=== PATIENT | female | born 1970 | race Caucasian/White ===

== ENCOUNTER → 2023-04-25 | Outpatient (CLI) | payer OTHER ==
[2023-04-25 12:13] LABS: Basophils # (A) 0.1 k/uL (0-0.2); Basophils % (A) 1 %; Eosinophils # (A) 0.2 k/uL (0-0.7); Eosinophils % (A) 3 %; HGB 14.8 gm/dL (11.4-16.0); Lymphocytes # (A) 2.2 k/uL (1.0-4.8); Lymphocytes % (A) 25 %; MCH 30.4 pg (25.0-35.0); MCHC 32.9 g/dL (31.0-37.0); MCV 92.5 fL (80.0-100.0); Mean Platelet Volume 7.6; Monocytes # (A) 0.4 k/uL (0-1.0); Monocytes % (A) 4 %; Neutrophils # (A) 5.8 k/uL (1.3-7.7); Neutrophils % (A) 67 %; Platelet Count 272 k/uL (150-450); RBC 4.86 m/uL (3.80-5.40); RDW 12.4 % (11.5-15.5); WBC 8.7 k/uL (3.8-10.6)
[2023-04-25 12:25] LABS: African American GFR (CKD) >90 (>60 ml/min/1.73 sqM); Anion Gap 8 mmol/L; Blood Urea Nitrogen 24 mg/dL (7-17); Calcium 9.7 mg/dL (8.4-10.2); Carbon Dioxide 24 mmol/L (22-30); Chloride 108 mmol/L (98-107); Glucose 95 mg/dL (74-99); Non-African American GFR(CKD) >90 (>60 ml/min/1.73 sqM); Potassium 4.1 mmol/L (3.5-5.1); Sodium 140 mmol/L (137-145)
== END | disposition home or self-care (01) ==
LOC: LABPAT 10:13
PROVIDERS: ATTEND Orthopaedic Surgery
DX: Z01.812 Encounter for preprocedural laboratory examination (principal); M75.02 Adhesive capsulitis of left shoulder; M75.42 Impingement syndrome of left shoulder
CPT/HCPCS: 80048; 85025; 93005

== ENCOUNTER 2023-05-08 05:38 | Day surgery (SDC) | payer OTHER ==
--- NOTE | 2023-05-07 08:25 | P.HPOR ---
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 Worsened over the past couple months. She's had difficult time with any overhead activity and at night. She's tried medications along with therapy with minimal relief. She denies any traumatic event. Review of Systems Negative except as in HPI Past Medical History Past Medical History: Thyroid Disorder Physical Examination - Shoulder left Tenderness with palpation: anterior Pain: with abduction, with forward flexion ROM: forward flexion: 60 degrees (90 passively) ROM: internal rotation: 0 ROM: external rotation: 40 degrees Crepitus with motion: Yes Strength: abduction: 5/5 Strength: external rotation: 5/5 Tests: internal impingement tests: positive, external impingment tests: positive Results The patient is a well-developed well-nourished female approximately 5 foot 5, 165 pounds of mesomorphic habitus. HEENT exam is nonfocal, neck is supple. She is diffusely tender about the left shoulder. She has significant limitation of passive range of motion. Impingement test, Neer test, and speed tests are positive. Her distal neurovascular appears intact in the left upper extremity. - Diagnostic results Shoulder MRI: image reviewed (Left shoulder MRI is reviewed and shows evidence of supraspinatus tendinosis along with a superior labral tear and diminished capsular volume. A partial tear of the proximal biceps is also noted.) Assessment and Plan Assessment: Left shoulder adhesive capsulitis/synovitis Left shoulder impingement/rotator cuff tendinitis/possible partial thickness rotator cuff and possible biceps tear Plan: I talked to the patient regarding her condition and treatment options. This point she remains quite symptomatic despite attempted conservative measures. After thorough discussion she has to proceed with surgery. We'll plan to proceed with left shoulder arthroscopic evaluation with probable subacromial decompression, manipulation under anesthesia, rotator cuff debridement, possible biceps tenotomy versus tenodesis.
[2023-05-07 09:03] VITALS: BMI 26.6
[2023-05-08] MEDS ORDERED: SCOPOLAMINE 1 MG/72 HR PATCH TRANSDERM ONE (06:05)
[2023-05-08] MEDS ORDERED: MIDAZOLAM 2 MG/2 ML VIAL IV PRN (06:05)
[2023-05-08] MEDS ORDERED: LACTATED RINGERS 1,000 ML IV SCH (06:05)
[2023-05-08] MEDS ORDERED: DEXAMETHASONE SOD PHOSPHATE 4 MG/ML 1 ML VIAL IV ONE (06:05)
[2023-05-08] MEDS ORDERED: ONDANSETRON 4 MG/2 ML VIAL IVP ONE (06:05)
[2023-05-08 06:23] VITALS: RESP 16
[2023-05-08 06:33] LABS: Glucose,Whole Blood 99 mg/dL (70-110)
[2023-05-08] MEDS ORDERED: HYDROmorphone 0.5 MG/0.5 ML SYRINGE IVP PRN (07:00)
[2023-05-08] MEDS ORDERED: MIDAZOLAM 2 MG/2 ML VIAL IVP ONE (07:16)
[2023-05-08] MEDS ORDERED: fentaNYL (PF) 50 MCG/ML 2 ML AMP IVP ONE (07:16)
[2023-05-08] MEDS ORDERED: GLYCOPYRROLATE 0.2 MG/ML 2 ML VIAL ONE (07:33)
[2023-05-08] MEDS ORDERED: ROPIVACAINE 5 MG/ML 30 ML VIAL ONE (07:33)
[2023-05-08] MEDS ORDERED: SUCCINYLCHOLINE CHLORIDE 200 MG/10 ML VIAL IV ONE (07:33)
[2023-05-08] MEDS ORDERED: MIDAZOLAM 2 MG/2 ML VIAL ONE (07:33)
[2023-05-08] MEDS ORDERED: KETOROLAC 15 MG/ML 1 ML VIAL ONE (07:33)
[2023-05-08] MEDS ORDERED: fentaNYL (PF) 50 MCG/ML 2 ML AMP ONE (07:33)
[2023-05-08] MEDS ORDERED: PROPOFOL 10 MG/ML 20 ML VIAL IV ONE (07:33)
[2023-05-08] MEDS ORDERED: DEXAMETHASONE SOD PHOSPHATE 4 MG/ML 1 ML VIAL ONE (07:33)
[2023-05-08] MEDS ORDERED: LIDOCAINE 2% INJ 20 MG/ML (2 ML VIAL) ONE (07:33)
[2023-05-08] MEDS ORDERED: PHENYLEPHRINE-0.9% NACL SYG 1,000 MCG/10 ML SYRINGE ONE (07:33)
[2023-05-08] MEDS ORDERED: EPINEPHrine (PF) 1 ML in SODIUM CHLORIDE 0.9% IRRIGATIO 3,000 ML IRRIGATION ONE ×8 (07:42)
--- NOTE | 2023-05-08 08:32 | P.OP ---
Date of Procedure: 05/08/23 Preoperative Diagnosis: Left shoulder adhesive capsulitis/impingement/partial thickness rotator cuff tear Postoperative Diagnosis: Same Procedure(s) Performed: Left shoulder arthroscopic subacromial decompression/synovectomy/rotator cuff debridement/manipulation under anesthesia Anesthesia: ulysses REARDON Surgeon: George Vergara [employer] Education Consultant #1: Jet Alvarez Estimated Blood Loss (ml): 10 Pathology: none sent Condition: stable Disposition: PACU Indications for Procedure: The patient's a 53-year-old female who presents with progressive left shoulder pain and stiffness despite conservative measures. A discussion of the risks and benefits of operative intervention versus continued conservative measures was made with patient she opted to proceed with surgery. Operative risks to include infection, neurovascular injury, development of blood clots, possible recurrence of stiffness, possible need for subsequent procedures was discussed. Informed consent was obtained. Operative Findings: As below Description of Procedure: The patient was brought to the operating room, and after induction of general anesthesia was placed in a beachchair position. A preoperative interscalene block was placed for postoperative analgesia. I examined the left shoulder. There was significant block to passive motion. Gentle manipulation was then performed first obtaining full external rotation with arm at the side. Moderate adhesions were encountered. I then obtained full forward elevation. Again moderate adhesions were encountered. The left upper extremity was prepped and draped in normal fashion. The bony outlines the acromion, distal clavicle, and coracoid process were outlined with a skin marker. The glenohumeral joint was inflated with 50 mL of saline utilizing a spinal needle from posterior approach. A posterior portal was made through a 5 mm skin incision 1 cm medial and inferior to the posterior lateral border time. A blunt trocar was used to easily into the joint. Diagnostic arthroscopy was performed. An anterior portal was made just lateral to the coracoid process entering the joint above the subscapularis tendon. The subscapularis tendon appeared to be intact. Anterior labrum was intact. There was significant synovitis involving the rotator interval. This was debrided with motorized shaver. The inferior recess was inspected. The posterior labrum was intact. The biceps and its anchor appear to be intact. On inspection the rotator cuff, it was intact on the articular surface. The arthroscope was then placed into the subacromial space. A lateral portal was made 2 centimeters inferior to the anterior lateral border of the acromion. The soft tissue on the undersurface of the acromion was debrided with a motorized shaver and electrocautery clearly defining the anterior medial and lateral borders as well as the distal clavicle. An anterior inferior acromioplasty was performed with a motorized julianna starting anterolateral, then extending this posteriorly, then extending this medially. I converted to a flat acromion and this was verified in the posterior and lateral viewing portals. There was significant bursal thickening in the subacromial space. This was debrided with a motorized shaver. On inspection the rotator cuff, a partial thickness bursal surface tear involving the supraspinatus was noted. This involved approximately 10-15 percent of the tendon thickness. This was debrided back to stable tissue. The remaining rotator cuff appeared to be intact and was stable. The arthroscope was then removed. The portals were closed with simple 3-0 nylon sutures. A sterile dressing was applied in addition to a sling. The patient was then awoken from general anesthesia and transferred to recovery room in good condition. Blood loss was estimated at 10 mL. No complications were incurred. Sponge and needle counts were correct in the case. Jet CALDWELL assisted and the major components of the case to include arm positioning, decompression, and debridement.
--- NOTE | 2023-05-08 08:42 | P.ANPRN ---
Procedure Note - Anesthesia - Nerve Block Performed Left Interscalene Time Out Performed: Yes (07:16) Date of Procedure: 05/08/23 Procedure Start Time: Procedure Stop Time: Location of Patient: PreOp Indication: Acute Post-Operative Pain, Requested by Surgeon (Dr Vergara) Sedation Type: Sedate with meaningful contact maintained Preparation: Sterile Prep Position: Supine Catheter: None Needle Types: Pajunk Needle Gauge: Other (see comment) (22g) Ultrasound used to visualize needle placement: Yes Ultrasound used to observe medication spread: Yes Injectate: 0.5% Ropivacaine (see comment for volume) (20cc + decadron 4mg) Blood Aspirated: Yes Pain Paresthesia on Injection Noted: Yes Resistance on Injection: Normal Image Stored and Saved: Yes Events: Uneventful and Well Tolerated
[2023-05-08 08:43] VITALS: TEMP 97
[2023-05-08 09:21] VITALS: BP 152/83; PULSE 74
== END 2023-05-08 09:39 | disposition home or self-care (01) ==
LOC: OR 05:38
PROVIDERS: ATTEND Orthopaedic Surgery
DX: M75.42 Impingement syndrome of left shoulder (principal); M75.02 Adhesive capsulitis of left shoulder; Z79.899 Other long term (current) drug therapy
CPT/HCPCS: 64415; 29827; 29826; J2250; J0330; J1100; J0690; J2405; J0171; J3010; J2795; J1885; J2370; J2704; J2001